=== PATIENT | male | born 1990 | race Caucasian/White ===

== ENCOUNTER 2017-01-20 00:47 | Emergency (ER) | payer OTHER ==
[~2017-01-20] VITALS: Ht 182.9 cm; Wt 67.7 kg
[2017-01-20 00:47] VITALS: Ht 182.9 cm; Wt 67.7 kg
[2017-01-20 02:00] VITALS: BP 136/87; PULSE 81; RESP 18
--- NOTE | 2017-01-20 02:12 | ERD ---
ER Documentation Chief Complaint Date/Time DATE: 01/20/17 TIME: 02:03 Chief Complaint S.I. was in custody and with the seatbelt pt attempt to wrap it around neck HPI This 26-year-old male is brought in by the police department for clearance for psychiatric admission [facility]. Patient is being arrested for a separate reason. They require [facility] [facility] clearance because the patient was sitting in the backseat when he wrapped the seatbelt around his neck for approximately 10 seconds according to the officer. The patient states that he feels well and does not have any neck pain or shortness of breath currently. ROS All systems reviewed and are negative except as per history of present illness. PMhx/Soc Medical and Surgical Hx: pt denies Medical Hx, pt denies Surgical Hx Hx Alcohol Use: No (denies) Hx Substance Use: No (denies) Hx Tobacco Use: No (denies) Smoking Status: Unknown if ever smoked Physical Exam Vitals Vital Signs Date Time Temp Pulse Resp B/P Pulse Ox O2 Delivery O2 Flow Rate FiO2 01/20/17 00:47 98.8 65 20 134/61 99 Physical Exam Const: [] No distress Head: Atraumatic Eyes: Normal Conjunctiva ENT: Normal External Ears, Nose and Mouth. Oropharynx within normal appearance. Neck: Full range of motion..~ No meningismus. No abrasions, no midline or paraspinal muscle tenderness. Anterior neck with normal appearance Resp: Clear to auscultation bilaterally Cardio: Regular rate and rhythm, no murmurs Skin: No petechiae or rashes Back: No midline or flank tenderness Ext: No cyanosis, or edema Neur: Awake and alert and oriented 3, no focal deficits Psych: Normal Mood and Affect Procedures/MDM Suicidal 26-year-old male who is otherwise healthy here for recheck of retaining attempt. Patient has no physical symptoms, pain or respiratory distress. Full physical exam was performed and see no reason for neck imaging currently. Patient is suicidal and the please do have a psychiatric process at their facilities. He will be placed on a hold and evaluated by psychiatrist in that facility. I see no medical problems preclude any psychiatric admission currently. Discharging him into police custody. Primary care follow-up in 2-3 days and return precautions to the ER explained. Departure Diagnosis: Primary Impression: Medical clearance for incarceration Additional Impressions: Suicidal ideation Hanging Condition: Stable Patient Instructions: Recognizing Suicide Warning Signs in Others, Neck Sprain/ Strain Referrals: PENDING SALE TO [facility] YOU HAVE RECEIVED A MEDICAL SCREENING EXAM AND THE RESULTS INDICATE THAT YOU DO NOT HAVE A CONDITION THAT REQUIRES URGENT TREATMENT IN THE EMERGENCY DEPARTMENT. FURTHER EVALUATION AND TREATMENT OF YOUR CONDITION CAN WAIT UNTIL YOU ARE SEEN IN YOUR DOCTORS OFFICE WITHIN THE NEXT 1-2 DAYS. IT IS YOUR RESPONSIBILITY TO MAKE AN APPOINTMENT FOR FOLOW-UP CARE. IF YOU HAVE A PRIMARY DOCTOR --you should call your primary doctor and schedule an appointment IF YOU DO NOT HAVE A PRIMARY DOCTOR YOU CAN CALL OUR PHYSICIAN REFERRAL HOTLINE AT IF YOU CAN NOT AFFORD TO SEE A PHYSICIAN YOU CAN CHOSE FROM THE FOLLOWING [facility] [address] [facility]. [facility] [address] [facility] [facility] [address] [facility] [address] [facility]. [facility] [address] [facility]. [facility]. [address] Additional Instructions: Call your primary care doctor TOMORROW for an appointment during the next 2-3 days.See the doctor sooner or return here if your condition worsens before your appointment time. GARIMA GRANT DO Jan 20, 2017 02:12
== END 2017-01-20 02:00 ==
LOC: E/R 00:47
DX: Z02.89 Encounter for other administrative examinations (principal); R45.851 Suicidal ideations; X83.8XXA Intentional self-harm by other specified means, initial encounter; Y92.9 Unspecified place or not applicable
CPT/HCPCS: 99282

== ENCOUNTER 2019-03-23 10:58 | Emergency (ER) | payer MEDICAID, OTHER ==
[~2019-03-23] VITALS: Ht 182.9 cm; Wt 85.5 kg
[~2019-03-23 10:58] MED LIST: ONDA4TAB8 PO
[2019-03-23 11:09] VITALS: Ht 182.9 cm; Wt 85.5 kg
[2019-03-23] MEDS ORDERED: ONDANSETRON 4 MG INJ IV STA (11:23)
[2019-03-23] MEDS ORDERED: SOD CHLORIDE 0.9% 1,000 ML IV STA (11:23)
[2019-03-23 13:05] VITALS: BP 116/74; PULSE 67; RESP 18
== END 2019-03-23 13:05 | disposition home or self-care (01) ==
LOC: E/R 10:58
DX: R11.10 Vomiting, unspecified (principal)
CPT/HCPCS: 36415; 80053; 83690; 85025; 96374; J2405; J7030; Z7502